=== PATIENT | female | born 1970 | race Caucasian/White ===

== ENCOUNTER → 2016-06-19 | Outpatient (CLI) | payer OTHER ==
--- NOTE | 2016-06-19 18:09 | MA ---
Screening Digital Mammogram, With iCAD Analysis Clinical Indications: Routine screening. Technique: Standard cephalocaudal and mediolateral oblique projections are obtained. The examinatio n is processed by the iCAD computer-aided detection system. Comparison: June 2015, April 2014, March 2013. Breast density: Type C; Heterogeneously dense. Findings: CAD was reviewed. There is equivocal developing asymmetry in the upper right breast versu s overlap of normal glandular elements. No suspicious microcalcifications are seen. The left breast is stable in appearance. Impression: Possible developing right breast asymmetry requires further evaluation, BI-RADS 0. Recommendation: Spot compression assessment of the right breast, with ultrasound suggested if the ab normality persists on diagnostic evaluation. [facility] will send a result letter to the patient. Dense breast parenchyma diminishes mammographic sensitivity. The patient's information is entered into a reminder system with a target due date for her next mammo gram. E:amm
== END ==
LOC: BMCIMAGING 10:50
DX: Z12.31 Encounter for screening mammogram for malignant neoplasm of breast (principal)
CPT/HCPCS: G0202

== ENCOUNTER → 2016-06-27 | Outpatient (CLI) | payer OTHER ==
--- NOTE | 2016-06-27 13:59 | MA ---
Diagnostic Digital Mammogram Right Breast. History: Potential abnormality seen on screening mammogram. COMPARISON: June 2016, June 2015, April 2014, March 2013. TECHNIQUE: Digital spot compression views obtained of the right breast in MLO projection. Mediolatera l view, repeat MLO projection, and exaggerated lateral CC views were obtained. FINDINGS: Potential abnormality compressed with normal-appearance of fibroglandular tissue. No suspic ious abnormality seen on the other views. This would indicate the prior finding was overlapping breas t parenchyma. A couple scattered tiny benign-appearing calcifications are seen. IMPRESSION: Benign. BI-RADS 2. Recommend: Patient return to annual screening mammography. Results given to the patient at the time the exam. [facility] will send a result letter to the patient. Negative mammography should not preclude additional workup of a clinically suspicious finding. The patient's information is entered into a reminder system with a target due date for her next mammo gram.
== END ==
LOC: BMCIMAGING 12:43
DX: R92.1 Mammographic calcification found on diagnostic imaging of breast (principal)
CPT/HCPCS: G0206

== ENCOUNTER → 2017-06-22 | Outpatient (CLI) | payer OTHER | LOC: BMCIMAGING 12:18 | PROVIDERS: ATTEND Internal Medicine | DX: Z12.31 Encounter for screening mammogram for malignant neoplasm of breast (principal); Z80.3 Family history of malignant neoplasm of breast ==

== ENCOUNTER → 2018-06-25 | Outpatient (CLI) | payer OTHER | LOC: BMCIMAGING 08:41 | PROVIDERS: ATTEND Internal Medicine | DX: Z12.31 Encounter for screening mammogram for malignant neoplasm of breast (principal) ==